=== PATIENT | female | born 1960 | race Hispanic/Latino ===

== ENCOUNTER → 2025-04-08 | Outpatient (CLI) | payer MEDICARE ==
--- NOTE | 2025-04-08 15:45 | HMCIMG ---
CLAVICLE LEFT REASON: Pain in left shoulder TECHNIQUE: 2 views were obtained. FINDINGS: There is no evidence of fracture or dislocation. There is no joint effusion. The soft tissues appear unremarkable. There is no evidence of a radiopaque foreign body. The AC joint and sternoclavicular joint appears normal. Patient is status post median sternotomy. IMPRESSION: No acute findings.
--- NOTE | 2025-04-08 15:46 | HMCIMG ---
SHOULDER COMP 2+VWS LT REASON: Pain in left shoulder TECHNIQUE: 2 views were obtained. FINDINGS: There is no evidence of fracture or dislocation. There is no joint effusion. The soft tissues appear unremarkable. There is no evidence of a radiopaque foreign body. Is status post median sternotomy. The left hemidiaphragm appears to be elevated. IMPRESSION: No acute findings.
== END | disposition home or self-care (01) ==
LOC: RAH 08:26
PROVIDERS: ATTEND Family Medicine
DX: M25.512 Pain in left shoulder (principal); Z98.890 Other specified postprocedural states
CPT/HCPCS: 73000; 73030